=== PATIENT | male | born 1940 | race Caucasian/White ===

== ENCOUNTER 2018-03-20 09:49 | Outpatient (CLI) | payer MEDICARE, OTHER ==
[2018-03-20] MEDS ORDERED: GADOBUTROL 7.5 MMOL/7.5 ML VIAL ONE (10:02)
--- NOTE | 2018-03-20 22:36 | MRI Report ---
Procedure Date: 03/20/2018 Accession Number: [id number] / [id number] Procedure: MRI - Brain W/WO CPT Code: FULL RESULT: EXAM: MRI BRAIN AND PITUITARY WITHOUT AND WITH CONTRAST. EXAM DATE: 03/20/2018 11:02 AM. CLINICAL HISTORY: History of pituitary tumor post resection. COMPARISON: Prior MRI brain 07/12/2010. TECHNIQUE: Multiplanar, multisequence T1-weighted and fluid-sensitive MR sequences of the brain and pituitary were performed. Other: None. IV Contrast: 7.5 cc Gadavist. Findings: Relevant images are indicated (image number, series number). There is no interval acute, subacute ischemic change. Stable postoperative changes are seen of the sella turcica, unchanged in the interval, as described previously. No evidence for recurrent pituitary mass. Gradient echo imaging demonstrates no hemosiderin deposition present in the brain. Stable appearance of suspected arachnoid cyst anteriorly in the interhemispheric fissure, maximum transverse dimension 2 cm, no significant mass effect. Superimposed minimal scattered white matter disease. Midbrain unremarkable. Craniocervical junction, limited evaluation upper cervical cord negative. Impressions: 1. Stable postoperative changes status post pituitary mass resection. No recurrent mass. 2. No acute or subacute ischemic change. 3. Stable suspected arachnoid cyst anterior interhemispheric fissure as described. Superimposed minimal scattered white matter disease. 4. Remaining brain/orbits are unremarkable. [facility]
== END 2018-03-20 09:50 | disposition home or self-care (01) ==
LOC: DI 09:49
PROVIDERS: ATTEND Internal Medicine
DX: H54.7 Unspecified visual loss (principal); Z86.011 Personal history of benign neoplasm of the brain
CPT/HCPCS: 70553; A9585

== ENCOUNTER 2018-07-28 14:38 | Outpatient (CLI) | payer MEDICARE, OTHER ==
--- NOTE | 2018-07-29 10:12 | Ultrasound Report ---
Reason: LUMP ON NECK Procedure Date: 07/28/2018 Accession Number: [id number] / [id number] Procedure: US - Head or Neck Soft Tissue CPT Code: FULL RESULT: EXAM: NECK ULTRASOUND EXAM DATE: 07/28/2018 02:55 PM. CLINICAL HISTORY: Lump on neck. COMPARISON: None. TECHNIQUE: Real-time sonographic imaging was performed by the junior designer utilizing color-flow. Multiple career representative static images were saved for review. FINDINGS: Focused grayscale ultrasound with limited color Doppler use demonstrates an ovoid appearing wider than tall heterogeneous relatively hypoechoic lesion which measures 1.4 x 0.6 x 1.4 cm and does not demonstrate the expected architecture of the lymph node. There is no abnormal vascularity by color Doppler. Portions of the margin are somewhat poorly defined. IMPRESSION: Indeterminate hypoechoic mass with relatively poor defined margins and an appearance not compatible with a normal lymph node. [facility]
== END 2018-07-28 14:39 | disposition home or self-care (01) ==
LOC: DI 14:38
PROVIDERS: ATTEND Internal Medicine
DX: R22.1 Localized swelling, mass and lump, neck (principal)
CPT/HCPCS: 76536

== ENCOUNTER 2018-09-08 13:42 | Outpatient (CLI) | payer MEDICARE, OTHER ==
[2018-09-08] MEDS ORDERED: BUFFERED LIDOCAINE 10 ML SYRINGE ONE (14:02)
[2018-09-08] MEDS ORDERED: BUFFERED LIDOCAINE 10 ML SYRINGE IU ONE (15:42)
--- NOTE | 2018-09-09 10:40 | Ultrasound Report ---
Reason: RT POSTERIOR NODE MASS Procedure Date: 09/08/2018 Accession Number: [id number] / [id number] Procedure: US - FNA Bx w/US Gnd 1st les CPT Code: 73589 FULL RESULT: PROCEDURE: ULTRASOUND GUIDED BIOPSY, FINE NEEDLE ASPIRATION. PREOPERATIVE DIAGNOSIS: Mass in midline posterior neck mass, possibly malignant. POSTOPERATIVE DIAGNOSIS: Same TECHNIQUE: Following written and oral informed consent including procedure risks and alternatives, the patient was brought to the ultrasound suite and positioned. Using local anesthesia, sterile technique, and direct ultrasound control, a guiding needle was advanced to the mass. A total of 6 FNA samples were obtained. Two samples were washed in solution for flow cytometry and the remaining 4 samples were placed in cytology solution. The patient tolerated the procedure well and there were no immediate complications. ANESTHESIA: Local only. AUTOMATION TEST ENGINEER: Dr Hi ESTIMATED BLOOD LOSS: Minimal FLUOROSCOPY TIME: None. COMPLICATIONS: None. CONDITION: Good. SPECIMEN: 25 Gauge fine-needle aspiration biopsy x 6. IMPLANTS: None. FINDINGS: Real-time ultrasound performed with static images saved to the PACS demonstrating the needle directed into the mass. IMPRESSION: Uncomplicated ultrasound guided biopsy as described. Pathology results will be reported separately. [facility]
== END 2018-09-08 13:43 | disposition home or self-care (01) ==
LOC: DI 13:42
PROVIDERS: ATTEND Surgery
DX: R22.1 Localized swelling, mass and lump, neck (principal)

== ENCOUNTER 2019-03-14 14:52 | Outpatient (CLI) | payer MEDICARE, OTHER ==
--- NOTE | 2019-03-15 23:53 | XRAY Report ---
Reason: COUGH Procedure Date: 03/14/2019 Accession Number: [id number] / [id number] Procedure: XR - Chest 2 View X-Ray CPT Code: 00675 FULL RESULT: EXAM: CHEST RADIOGRAPHY EXAM DATE: 03/14/2019 03:08 PM. CLINICAL HISTORY: COUGH. COMPARISON: None. TECHNIQUE: 2 views. FINDINGS: Lungs/Pleura: No focal opacities evident. No pleural effusion. No pneumothorax. Normal volumes. Mediastinum: Heart and mediastinal contours are unremarkable. Other: Moderate L1 compression deformity appears more chronic. IMPRESSION: No acute cardiopulmonary disease seen. [facility]
== END 2019-03-14 14:53 | disposition home or self-care (01) ==
LOC: DI 14:52
PROVIDERS: ATTEND Internal Medicine
DX: R05 Cough (principal)
CPT/HCPCS: 71046

== ENCOUNTER 2022-07-08 08:00 | Outpatient (CLI) | payer MEDICARE, OTHER ==
[2022-07-08 16:23] LABS: BASOPHILS # (AUTO) 0.1 10^3/uL (0.0-0.1); BASOPHILS % (AUTO) 1.3 %; EOSINOPHILS # (AUTO) 0.2 10^3/uL (0.0-0.7); HCT - HEMATOCRIT 48.5 % (42.0-52.0); HGB - HEMOGLOBIN 15.8 g/dL (14.0-18.0); LYMPHOCYTES # (AUTO) 1.9 10^3/uL (1.5-3.5); LYMPHOCYTES % (AUTO) 34.9 %; MEAN CORPUSCULAR HEMOGLOBIN 26.4 pg (27.0-31.0); MEAN CORPUSCULAR HGB CONC 32.6 g/dL (32.0-36.0); MEAN CORPUSCULAR VOLUME 81.1 fL (80.0-94.0); MEAN PLATELET VOLUME 10.8 fL (7.4-11.4); MONOCYTES # (AUTO) 0.4 10^3/uL (0.0-1.0); MONOCYTES % (AUTO) 7.4 %; NEUTROPHILS # (AUTO) 2.9 10^3/uL (1.5-6.6); NEUTROPHILS % (AUTO) 53.2 %; PLT - PLATELET COUNT 230 10^3/uL (130-450); RED BLOOD COUNT 5.98 10^6/uL (4.70-6.10); RED CELL DISTRIBUTION WIDTH 13.4 % (12.0-15.0); WHITE BLOOD COUNT 5.4 x10^3/uL (4.8-10.8)
[2022-07-08 17:07] LABS: ALBUMIN 4.3 g/dL (3.2-5.5); ALBUMIN/GLOBULIN RATIO 1.6 (1.0-2.2); ALKALINE PHOSPHATASE 110 IU/L (42-121); ALT ALANINE AMINOTRANSFERASE 24 IU/L (10-60); AST ASPARTATE AMINOTRANSFERASE 25 IU/L (10-42); BILIRUBIN,TOTAL 0.7 mg/dL (0.2-1.0); BUN - BLOOD UREA NITROGEN 20 mg/dL (6-20); CALCIUM 9.3 mg/dL (8.5-10.3); CARBON DIOXIDE - CO2 27 mmol/L (21-32); CHLORIDE 100 mmol/L (101-111); CHOL/HDL RATIO 4.3 (<5.0); CHOLESTEROL 166 mg/dL; CK- CREATINE KINASE 70 IU/L (22-269); GFR - MDRD 72 (>89); GLUCOSE 133 mg/dL (70-100); HDL CHOLESTEROL 39 mg/dL; LDL CHOLESTEROL,CALCULATED 96 mg/dL; LDL/HDL RATIO 2.5 (<3.6); POTASSIUM 3.9 mmol/L (3.5-5.0); SODIUM 137 mmol/L (135-145); TRIGLYCERIDES 157 mg/dL; URIC ACID 6.6 mg/dL (2.6-7.2); VLDL CHOLESTEROL 31 mg/dL
[2022-07-08 17:09] LABS: CORTISOL 5.3 ug/dL
[2022-07-08 17:11] LABS: PSA TOTAL 0.82 ng/mL (0.000-2.000)
[2022-07-08 17:15] LABS: THYROID STIMULATING HORMONE < 0.08 uIU/mL (0.34-5.60)
[2022-07-08 17:16] LABS: FREE T4 (FREE THYROXINE) 1.09 ng/dL (0.58-1.64)
[2022-07-08 21:14] LABS: ESTIMATED AVERAGE GLUCOSE 146 mg/dL (70-100); HEMOGLOBIN A1c% 6.7 % (4.27-6.07)
== END 2022-07-08 23:59 | disposition home or self-care (01) ==
LOC: LAB.R 08:00
PROVIDERS: ATTEND Internal Medicine
DX: Z00.00 Encounter for general adult medical examination without abnormal findings (principal); F32.A Depression, unspecified; M10.9 Gout, unspecified; E78.5 Hyperlipidemia, unspecified; R73.9 Hyperglycemia, unspecified; E23.0 Hypopituitarism; Z79.899 Other long term (current) drug therapy
CPT/HCPCS: 80053; 80061; 82533; 82550; 83036; 83721; 84153; 84403; 84439; 84443; 84550; 85025

== ENCOUNTER 2023-08-26 10:42 | Outpatient (CLI) | payer MEDICARE, OTHER ==
--- NOTE | 2023-08-26 13:15 | Ultrasound Report ---
PROCEDURE: Abdomen Limited INDICATIONS: ELEVATED LIVER ENZYMES TECHNIQUE: Real-time focused scanning was performed of the abdomen, with image documentation. COMPARISONS: None. FINDINGS: Liver: The liver is normal size and markedly hyperechoic with dense parenchyma unable to be penetrat ed with ultrasound. Hepatic and portal veins are patent with appropriate direction of flow. Gallbladder: The gallbladder wall is normal thickness at 1.6 mm. There is a stone near the gallbladde r neck. No pericholecystic fluid or sonographic Cline sign. Biliary ducts: Intrahepatic and extra hepatic bile ducts are not well seen due to lack of good acoust ic window. Pancreas: Not seen. Right kidney: Normal in size and echotexture. Right kidney measures 11.7 cm long. No hydronephrosis or nephrolithiasis. No solid masses. No complex renal cystic lesions which require follow-up. There is a simple cyst in lower pole right kidney measuring 4.6 cm. Aorta: Not well seen. IVC: Not seen Miscellaneous: No free abdominal fluid. IMPRESSION: Technically limited exam due to lack of good acoustic window and marked hepatic hyperechogenicity. Hyperechoic, dense liver parenchyma may be due to hepatic steatosis or other intrinsic liver disease. Liver lesions cannot be excluded due to lack of visualization. Cholelithiasis without sonographic evidence of acute cholecystitis. Reviewed by: Sheila Chacon MD on 08/26/2023 1:14 PM PST Approved by: Sheila Chacon MD on 08/26/2023 1:14 PM PST Station ID: [id number]
== END 2023-08-26 10:43 | disposition home or self-care (01) ==
LOC: DI 10:42
PROVIDERS: ATTEND Internal Medicine
DX: R74.01 Elevation of levels of liver transaminase levels (principal); K80.20 Calculus of gallbladder without cholecystitis without obstruction